=== PATIENT | female | born 1985 | race Caucasian/White ===

== ENCOUNTER 2020-08-23 11:15 | Emergency (ER) | payer BC ==
[2020-08-23] MEDS ORDERED: Nitrofurantoin Monohydrate/Macrocrystalline 100 MG Cap PO ONE (11:16)
--- NOTE | 2020-08-23 15:19 | EDM.PDOC ---
ED HPI GENERAL MEDICAL PROBLEM - General Chief Complaint: Genitourinary Problem Stated Complaint: [id number] BAD BLADDER INFECTION Time Seen by Provider: 08/23/20 15:18 Source of Information: Reports: Patient, RN, RN Notes Reviewed History Limitations: Reports: No Limitations - History of Present Illness INITIAL COMMENTS - FREE TEXT/NARRATIVE: Geri is a 34 y/o female who presents to the ED via personal vehicle with complaints of dysuria, suprapubic fullness, and frequency. The patient reports her symptoms began this morning and have increased in severity over that time. She denies fever, shaking chills, palpitations, abdominal pain, nausea, vomiting, flank pain, hematuria, diarrhea, constipation, vaginal discharge, dyspareunia, or vaginal odor. She has taken no medications for her symptoms. She denies history of frequent urinary tract infections. - Related Data Allergies Allergy/AdvReac Type Severity Reaction Status Date / Time No Known Allergies Allergy Verified 08/23/20 11:58 Home Meds: Home Meds Interferon Beta-1a/Albumin [Rebif 44 Mcg/0.5 ml Syringe] 44 mcg SQ WEEKLY [History] SUMAtriptan 100 mg PO ASDIRECTED PRN 11/22/17 [History] Tolterodine Tartrate [Detrol LA] 4 mg PO DAILY 11/22/17 [History] ondansetron HCL [Zofran] 4 mg PO Q6HR PRN 11/22/17 [History] Past Medical History Neurological History: Reports: MS - Past Surgical History GI Surgical History: Reports: Appendectomy, Cholecystectomy Female Surgical History: Reports: Cervical Conization, Hysterectomy ED ROS GENERAL - Review of Systems Review Of Systems: Comprehensive ROS is negative, except as noted in HPI. ED EXAM, RENAL/ - Physical Exam Exam: See Below Exam Limited By: No Limitations General Appearance: Alert, No Apparent Distress Eye Exam: Bilateral Eye: EOMI, Normal Inspection, PERRL (3mm) Ears: Normal External Exam, Hearing Grossly Normal Nose: Normal Inspection, Normal Mucosa, No Blood Throat/Mouth: Normal Inspection, Normal Lips, Normal Teeth, Normal Gums, Normal Oropharynx, Normal Voice, No Airway Compromise Head: Atraumatic, Normocephalic Neck: Normal Inspection, Supple, Non-Tender, Full Range of Motion Respiratory/Chest: No Respiratory Distress, Lungs Clear, Normal Breath Sounds, No Accessory Muscle Use, Chest Non-Tender Cardiovascular: Normal Peripheral Pulses, Regular Rate, Rhythm, No Edema, No Gallop, No JVD, No Murmur, No Rub GI/Abdominal: Normal Bowel Sounds, Soft, Non-Tender, No Organomegaly, No Distention, No Abnormal Bruit, No Mass. No: Guarding, Rigid, Rebound (Female) Exam: Deferred Rectal (Female) Exam: Deferred Back Exam: Normal Inspection, Full Range of Motion. No: CVA Tenderness (L), CVA Tenderness (R) Neurological: Alert, Oriented, CN II-XII Intact, Normal Cognition, Normal Gait, No Motor/Sensory Deficits Psychiatric: Normal Affect, Normal Mood Skin Exam: Warm, Dry, Intact, Normal Color, No Rash. No: Cyanosis, Jaundice, Mottled, Pallor Course - Vital Signs Last Recorded V/S: Last Vital Signs Temp 97.4 F 08/23/20 12:50 Pulse 99 08/23/20 12:50 Resp 18 08/23/20 12:50 BP 144/103 H 08/23/20 12:50 Pulse Ox 99 08/23/20 12:50 - Orders/Labs/Meds Labs: Laboratory Tests 08/23/20 Range/Units 11:55 Urine Color Yellow (YELLOW) Urine Appearance Clear (CLEAR) Urine pH 6.5 (5.0-9.0) Ur Specific Broussard 1.015 (1.005-1.030) Urine Protein Negative (NEGATIVE) Urine Glucose (UA) Negative (NEGATIVE) Urine Ketones Negative (NEGATIVE) Urine Occult Blood Trace-intact H (NEGATIVE) Urine Nitrite Negative (NEGATIVE) Urine Bilirubin Negative (NEGATIVE) Urine Urobilinogen 0.2 (0.2-1.0) mg/dL Ur Leukocyte Esterase Small H (NEGATIVE) Urine RBC 0-5 /HPF Urine WBC 5-10 H (0-5/HPF) /HPF Ur Epithelial Cells Few (NOT SEEN) /HPF Urine Bacteria Few (0-FEW/HPF) /HPF Meds: Medications Discontinued Medications Generic Name Dose Route Start Last Admin Trade Name Freq PRN Reason Stop Dose Admin Nitrofurantoin Macrocrystals Confirm 08/23/20 15:41 Nitrofurantoin Monohydrate/Macrocrystalline 100 Mg Cap Administered 08/23/20 15:42 Dose 200 mg .ROUTE .STK-MED ONE - Re-Assessments/Exams Free Text/Narrative Re-Assessment/Exam: 08/23/20 Findings of examination and lab work reviewed with patient. Will treat UTI with Macrobid. Discussed supportive cares for UTI. Red flag signs and symptoms which would warrant reevaluation reviewed. Patient verbalized understanding and agreement with the plan of care. Departure - Departure Time of Disposition: 15:34 Disposition: Home, Self-Care 01 Condition: Good Clinical Impression: UTI, Urinary tract infectious disease - Discharge Information *PRESCRIPTION DRUG MONITORING PROGRAM REVIEWED*: Not Applicable *COPY OF PRESCRIPTION DRUG MONITORING REPORT IN PATIENT TERRA: Not Applicable Instructions: Urinary Tract Infection, Adult, [facility]xak[facility]-Tiz[facility] Forms: ED Department Discharge Additional Instructions: Rx: macrobid 1.) Take all of your antibiotic until gone, even as symptoms improve. 2.) You may take AZO, or similar product, for bladder discomfort with urination. 3.) Drink plenty of water to stay hydrated and flush out kidneys and bladder. Sepsis Event Note (ED) - Evaluation Sepsis Screening Result: No Definite Risk
[2020-08-23] MEDS ORDERED: Nitrofurantoin Monohydrate/Macrocrystalline 100 MG Cap ONE (15:41)
== END 2020-08-23 15:47 | disposition home or self-care (01) ==
LOC: DL.ED 11:15
DX: N39.0 Urinary tract infection, site not specified (principal)
CPT/HCPCS: 81001; 87086; 87088; 87186; 99283; A9270

== ENCOUNTER 2023-11-24 05:33 | Emergency (ER) | payer BC, OTHER ==
[2023-11-24] MEDS: Iopamidol 612 MG/ML 100 ML Bottle IVPUSH ONE (05:52)
[2023-11-24 06:07] LABS: BASOPHILS PERCENT AUTO 0.1 % (0.0-1.0); EOSINOPHILS PERCENT AUTO 0.2 % (1.0-3.0); HEMATOCRIT 38.8 % (37.0-47.0); HEMOGLOBIN 12.3 g/dL (12.0-16.0); LYMPHOCYTES PERCENT AUTO 14.7 % (20.5-50.1); MEAN CORPUSCULAR HEMOGLOBIN 28.7 pg (27.0-34.0); MEAN CORPUSCULAR HGB CONC 31.7 g/dL (33.0-35.0); MEAN CORPUSCULAR VOLUME 90.7 fL (80-100); MONOCYTES PERCENT AUTO 6.6 % (2-8); NEUTROPHILS PERCENT AUTO 78.4 % (42.2-75.2); PLATELET COUNT,PLT 156 10^3/uL (150-450); RED BLOOD CELL COUNT 4.28 10^6/uL (4.2-5.4); WHITE BLOOD CELL COUNT,WBC 8.7 10^3/uL (5.0-10.0)
[2023-11-24] MEDS: Ketorolac 30 MG/ML SDV IVPUSH ONE (06:10)
[2023-11-24] MEDS: Sodium Chloride 0.9% 1,000 ML IV ONE ×2 (06:10→08:31)
[2023-11-24 06:12] LABS: APPEARANCE,URINE CLEAR (CLEAR); BILIRUBIN,URINE NEGATIVE (NEGATIVE); COLOR,URINE YELLOW (YELLOW); GLUCOSE,URINE NEGATIVE (NEGATIVE); KETONES,URINE TRACE (NEGATIVE); LEUKOCYTE ESTERASE,URINE NEGATIVE (NEGATIVE); NITRITE,URINE NEGATIVE (NEGATIVE); OCCULT BLOOD,URINE TRACE-INTACT (NEGATIVE); PROTEIN,URINE 30 (NEGATIVE); UROBILINOGEN,URINE 0.2 mg/dL (0.2-1.0)
[2023-11-24 06:24] LABS: AMORPHOUS SEDIMENT,URINE FEW /HPF (NOT SEEN); BACTERIA,URINE FEW /HPF (0-FEW/HPF); EPITHELIAL CELLS,URINE MODERATE /HPF (NOT SEEN); MUCUS,URINE MODERATE /LPF (NOT SEEN); RBC,URINE 0-5 /HPF (0-5)
[2023-11-24 06:30] LABS: A/G RATIO 0.9; ALANINE AMINOTRANSFERASE,ALT 23 U/L (14-59); ALBUMIN 3.5 g/dL (3.4-5.0); ALKALINE PHOSPHATASE 62 U/L (46-116); ANION GAP 14.1 mEq/L (7-13); ASPARTATE AMNIOTRANSFERASE,AST 22 U/L (15-37); BILIRUBIN TOTAL 0.6 mg/dL (0.2-1.0); BLOOD UREA NITROGEN,BUN 7 mg/dL (7-18); BUN/CREATININE RATIO 11.7 (No establ ref range); CALCIUM 8.9 mg/dL (8.5-10.1); CARBON DIOXIDE,CO2 26 mmol/L (21-32); CHLORIDE,CL 104 mmol/L (98-107); EST CRCL DRUG DOSING (CG) 116.68 mL/min; GLUCOSE RANDOM 116 mg/dL (70-99); LIPASE 17 U/L (16-77); MAGNESIUM 1.7 mg/dL (1.8-2.4); POTASSIUM,K 4.1 mmol/L (3.5-5.1); PROTEIN TOTAL,TP 7.6 g/dL (6.4-8.2); SODIUM,NA 140 mmol/L (136-145)
[2023-11-24 06:31] LABS: ESTIMATED GFR 116 mL/min (>=60)
[2023-11-24] MEDS: Magnesium Sulfate/Water Premix 2 GM in Premix Bag 1 BAG IV ONE (06:47)
[2023-11-24 06:48] LABS: LACTIC ACID 0.8 mmol/L (0.4-2.0)
[2023-11-24] MEDS: GI Cocktail Oral Solution 30 ML PO ONE (07:59)
[2023-11-24] MEDS: Ondansetron 4 MG/2 ML SDV IVPUSH ONE ×2 (08:22→10:23)
[2023-11-24] MEDS: Morphine 4 MG/ML Syringe IVPUSH ONE (08:23)
[2023-11-24] MEDS: HYDROmorphone 0.5 MG/0.5 ML Syringe IVPUSH ONE ×3 (09:10→12:07)
== END 2023-11-24 13:10 | disposition home or self-care (01) ==
LOC: DL.ED 05:33
DX: N83.292 Other ovarian cyst, left side (principal); Z90.710 Acquired absence of both cervix and uterus; Z79.899 Other long term (current) drug therapy
CPT/HCPCS: 36415; 74177; 76856; 80053; 81001; 83605; 83690; 83735; 84484; 85025; 93005; 96361; 96365; 96366; 96375; 96376; 99284; A9270; J1171; J1885; J2270; J2405; J3475; J7030; Q9967